=== PATIENT | female | born 1995 | race Hispanic/Latino ===

== ENCOUNTER 2017-03-16 09:59 | Emergency (ER) | payer OTHER ==
[~2017-03-16] VITALS: Ht 165.1 cm; Wt 81.8 kg
[2017-03-16 10:08] VITALS: BP 118/78; PULSE 71; RESP 16; O2SAT 97
[2017-03-16 10:53] LABS: APPEARANCE,URINE HAZY (CLEAR,HAZY); COLOR,URINE STRAW (YELLOW); OCCULT BLOOD,URINE LARGE (NEGATIVE); PH,URINE 6.5 (5.0-8.0); UROBILINOGEN,URINE NORMAL (NORMAL)
--- NOTE | 2017-03-16 11:32 | ED.REPORT ---
HPI-Abd Pain F Under 41 Date of Service Mar 16, 2017 ED Provider: John Carbone MD This is a 21-year-old female with no known past medical history who presents to the Emergency Department for abdominal pain. Patient reports this started 3 days prior while sitting on her couch. She describes the pain as sharp in her mid abdomen that radiates to her back. Sitting up seems to make the pain worse and lying down seems to help with the pain. Currently the pain is 6 out of 10. She does note that she is having burning with urination and little urine coming out. She notes her last menstrual cycle was on February 16 and notes she started having bleeding today. She is sexually active with no history of gonorrhea or chlamydia. She denies any vaginal discharge. She has had associated nausea. She denies fevers, chills, vomiting, chest pain, shortness of breath, diarrhea. She has not had any abdominal surgeries in the past. Last bowel movement was yesterday. Nursing Notes Stated Complaint: ABD PAIN Chief Complaint: Female Abdominal Pain Nursing Notes Reviewed: Yes Allergies: Coded Allergies: No Known Allergies (Unverified Allergy, Unknown, 03/16/17) Scheduled Azithromycin (Zithromax) 250 Mg Tablet 250 MG PO DAILY General Time Seen by MD: 11:00 Chief Complaint Abdominal pain Past Medical History Past Medical History None Past Surgical History None Smoking History Current Every Day Smoker (2 cigarettes/day for past year) Social History Alcohol Use: Denies alcohol use Drug Use: Denies drug use Review of Systems Basic Review of Systems Eyes: Vision NL ENT: Hearing NL Neurologic: NL mental status, No weakness, No numbness Psychiatric: Normal thought content Constitutional: Denies: Chills, Fever Respiratory: Denies: Shortness of breath Cardiovascular: Denies: Chest pain GI: Reports: Abdominal pain, Constipation, Nausea, Denies: Diarrhea, Vomiting Female: Reports: Dysuria, Urination decreased, Denies: Vaginal discharge Musculoskeletal: Reports: Back pain, Denies: Extremity swelling Complete sys rev & neg: except as marked. Physical Exam Initial Vital Signs Vital Signs (First) Date Time Temp Pulse Resp B/P Pulse Ox O2 Delivery O2 Flow Rate FiO2 03/16/17 10:08 36.5 71 16 118/78 97 Room Air Head / Eyes: Atraumatic, Normocephalic ENT: Mucous membranes moist, Conjunctiva normal, No scleral icterus Neck: Supple, Full range of motion Lymphatic: No lymphadenopathy Extremities: Vascular intact, Neuro intact, No swelling Skin: Warm, Dry Neurologic: Alert, Oriented Psychiatric: Mood/affect normal, Behavior normal Cardiovascular: Heart rate NL, Regular rhythm, Heart sounds NL, No murmurs Abdomen: Atraumatic, Soft, McBurney's non-tender, No guarding, No rebound, BS normoactive, No palpable mass Tenderness/Guarding/Rebound: Positive: Tender diffuse (LLQ > RLQ) Negative Starbuck Left CVA tenderness Head / Eyes: Atraumatic, Normocephalic, EOMI Female Genitourinary: Anchor Tack Puller present, External genitalia NL, No discharge, No adnexal mass, No adnexal tenderness Vaginal Bleeding / Discharge: Positive: Bleeding moderate (menstrual) Pelvic Exam: Positive: Cervical motion tend... (Moderate) Interpretation & Diagnostics Lab Results Interpretation Result Diagram: 03/16/17 1200 03/16/17 1200 Test 03/16/17 10:11 03/16/17 12:00 03/16/17 14:54 Urine Color Straw (YELLOW) Urine Appearance Hazy (CLEAR,HAZY) Urine pH 6.5 (5.0-8.0) Urine Specific [place]iss 1.025 (1.003-1.035) Urine Protein Tracemg/dL (NEG,TRACE) Urine Glucose (UA) Negativemg/dL (NEGATIVE) Urine Ketones Negativemg/dL (NEGATIVE) Urine Occult Blood Large (NEGATIVE) Urine Nitrite Negative (NEGATIVE) Urine Bilirubin Negative (NEGATIVE) Urine Urobilinogen Normalmg/dL (NORMAL) Urine Leukocyte Esterase Negative (NEGATIVE) Urine RBC 11-50/hpf (0-2) Urine WBC 0-5/hpf (0-5) Urine Epithelial Cells Occasional/hpf (NONE-MOD) Urine Crystals None seen (NONE SEEN) Urine Bacteria Moderate/hpf (NONE-FEW) Urine Hyaline Casts None/lpf (NONE) Urine Granular Casts None seen (NONE SEEN) Urine Waxy Casts None seen (NONE SEEN) Urine Red Blood Cell Casts None seen (NONE SEEN) Urine White Blood Cell Casts None seen (NONE SEEN) Urine Mucus Present (None Seen) Urine Trichomonas None seen (NONE SEEN) Urine Yeast None (NONE SEEN) Urinalysis Comment None Urine Culture Reflexed Indicated Hold Urine Received (Received) White Blood Count 5.3th/mm3 (3.8-10.1) Red Blood Count 4.35mil/mm3 (3.90-5.20) Hemoglobin 13.2g/dL (12.0-15.6) Hematocrit 39.8% (35.0-46.0) Mean Corpuscular Volume 91.5fL (81-100) Mean Corpuscular Hemoglobin 30.3pg (27.0-35.0) Mean Corpuscular Hemoglobin Concent 33.2% (32.0-37.0) Red Cell Distribution Width 12.2% (12.3-15.4) Platelet Count 204bil/L (150-400) Sodium Level 139mEq/L (134-144) Potassium Level 3.8mEq/L (3.5-5.2) Chloride Level 106mEq/L (97-108) Carbon Dioxide Level 22mmol/L (18-29) Blood Urea Nitrogen 11mg/dL (6-20) Creatinine 0.59mg/dL (0.57-1.00) Estimat Glomerular Filtration Rate 186mL/min (>59) Glucose Level 92mg/dL (60-99) Lactic Acid Level 0.6mmol/L (0.4-2.0) Calcium Level 9.2mg/dL (8.5-10.1) Total Bilirubin 0.3mg/dL (0.0-1.2) Aspartate Amino Transf (AST/SGOT) 17U/L (0-50) Alanine Aminotransferase (ALT/SGPT) 19U/L (0-32) Alkaline Phosphatase 92U/L (25-150) Total Protein 7.3g/dL (6.4-8.4) Albumin 4.1g/dL (3.4-5.0) Lipase 36U/L (13-60) US Focused non-OB Pelvis PROCEDURE: US PELVIC SONOGRAM + TRANSVAGINAL SONOGRAM FINDINGS: (orthogonal measurements) Uterus size: 7.27 cm, 3.93 cm Endometrium thickness: 2.10 mm Right ovary size: 2.67 cm, 3.65 cm, 2.07 cm Left ovary size: 2.54 cm, 3.04 cm, 1.86 cm Transabdominal scanning: Limited scanning through the kidneys shows no hydronephrosis. No pathologic free abdominal or pelvic fluid. Endovaginal scanning: Uterus: Uterus is normal in size and appearance. Endometrium is within normal physiologic limits. Ovaries: Within normal physiologic limits. IMPRESSION: No source for pelvic pain identified. Re-Eval/Medical Decision Med Decision/Clinical Course In summary, this is a 21-year-old female with no known past medical history who presents to the ED for evaluation of abdominal pain associated with nausea over the past 3 days. DDx broad and includes ectopic , ovarian torsion, ruptured ovarian cyst, PID, SBO, appendicitis, cholecystitis/biliary colic, pancreatitis, nephrolithiasis/renal colic, IBD, intraabdominal mass/abscess, gastroenteritis, diverticulitis, hernia., Upon arrival to the ED, patient hemodynamically stable, vitals grossly within normal limits. Pt given zofran for nausea. She did not require any pain medications. Initial workup and labs as per above, notable for a lactate of 0.6, no leukocytosis, UA grossly wnl except for large occult blood which may be explained due to start of menstrual bleeding. Urine test negative. Patient did have moderate CMT, but did not appreciate adnexal fullness on exam. US of the patient's abdomen did not show any source of pain. We discussed that we could not completely rule out other intra-abdominal causes for her pain such as appendicitis, etc. however this does not seem consistent with her examination. We discussed performing a CT scan in the ED versus having her return in 24-48 hours for repeat abdominal exam and she opted for the latter despite the possibility that we could be missing something early. Given above, seems reasonable to discharge the patient home with close PCP f/u, very careful return precautions. She will be treated with azithromycin and ceftriaxone for suspected PID. Patient verbalized understanding and agreement with the plan as stated, denied further questions. Counseled Regarding: Diagnosis, Lab results, Need for follow-up, When/why to return to ED Discharge & Departure Primary Impression: Pelvic inflammatory disease Disposition: Home Discharge Condition All VS Reviewed: Yes Condition: Improved Patient Instructions: Pelvic Inflammatory Disease (DC) Additional Instructions: You did have signs and symptoms for pelvic inflammatory disease. I have prescribed antibiotics for you to take. Take azithromycin once a day for one week. You also received ceftriaxone and azithromycin while where here. This should help take care of any pelvic infection. You should follow-up with your primary care physician within 48 hours. If your symptoms start to worsen and you develop fevers, excessive vomiting or excessive abdominal pain, return to the emergency department. Referrals: NOPCP (PCP) Attending Statment I saw and evaluated the patient both independently and with the resident. I agree with the plan and findings as documented above. Kirk Amaro DO Mar 16, 2017 11:19 John Carbone MD Mar 16, 2017 11:38
[2017-03-16] MEDS ORDERED: 0.9% Sodium Chloride 1,000 ML IV ONE (11:39)
[2017-03-16 12:15] LABS: Mean Corpuscular Hemoglobin 30.3 pg (27.0-35.0); Mean Corpuscular Volume 91.5 fL (81-100)
--- NOTE | 2017-03-16 14:07 | DRSVH ---
PROCEDURE: US PELVIC SONOGRAM + TRANSVAGINAL SONOGRAM INDICATIONS: abd pain, flank pain; eval torsion, TOA, hydroneph TECHNIQUE: Real-time scanning was performed of the pelvic organs, with image documentation. Additional endovagi nal scanning was necessary due to incomplete visualization of the adnexal and endometrial structures by transabdominal scanning. COMPARISON: None. FINDINGS: (orthogonal measurements) Uterus size: 7.27 cm, 3.93 cm Endometrium thickness: 2.10 mm Right ovary size: 2.67 cm, 3.65 cm, 2.07 cm Left ovary size: 2.54 cm, 3.04 cm, 1.86 cm Transabdominal scanning: Limited scanning through the kidneys shows no hydronephrosis. No pathologi c free abdominal or pelvic fluid. Endovaginal scanning: Uterus: Uterus is normal in size and appearance. Endometrium is within normal physiologic limits. Ovaries: Within normal physiologic limits. IMPRESSION: No source for pelvic pain identified. Dictated by: Yrn Davenport [facility] Interpreted: Charles Tyler MD on 03/16/2017 at 13:27 Approved by: Charles Tyler M.D. on 03/16/2017 at 14:05
[2017-03-16] MEDS ORDERED: cefTRIAXone Inj 250 MG, Lidocaine PF 1% Inj 0.9 ML in Syringe 1 EACH IM ONE (15:25)
[2017-03-16] MEDS ORDERED: ZIT250 PO (15:32)
[2017-03-16 15:58] VITALS: BP 105/66; PULSE 66; O2SAT 98
[2017-03-16] MEDS ORDERED: DEXTROSE 5% IV ONE (16:00)
[2017-03-16] MEDS ORDERED: CEFTRIAXONE IV ONE (16:00)
[2017-03-16 17:01] VITALS: BP 95/63; PULSE 70; O2SAT 95
== END 2017-03-16 17:02 | disposition home or self-care (01) ==
LOC: SED 09:59
DX: N73.9 Female pelvic inflammatory disease, unspecified (principal); F17.200 Nicotine dependence, unspecified, uncomplicated
CPT/HCPCS: 36415; 76830; 76856; 80053; 81000; 81025; 83605; 83690; 85027; 87086; 87088; 87210; 87491; 87591; 96361; 96365; 99285; J0696; J7030